=== PATIENT | female | born 1960 | race Caucasian/White ===

== ENCOUNTER 2023-01-01 12:38 | Outpatient (CLI) | payer OTHER, SELFPAY ==
--- NOTE | 2023-01-01 13:00 | CRLHL7_ITS ---
For Patients: As a result of the Cures Act, medical imaging exams and procedure reports are released immediately into your electronic medical record. You may view this report before your referring provider. If you have questions, please contact your health care provider. BILATERAL SCREENING MAMMOGRAM WITH COMPUTER-AIDED DETECTION AND TOMOSYNTHESIS TECHNIQUE: CC and MLO views were obtained. These mammographic images have been obtained using full-field digital technique. These mammographic images were interpreted with the benefit of computer-aided detection. Breast Tomosynthesis was used in this interpretation. COMPARISON FILM: 03/31/18, 03/25/17, 03/21/16. FINDINGS: There are scattered areas of fibroglandular density IMPRESSION: There is no radiographic evidence for malignancy. ASSESSMENT: BI-RADS Category 1: Negative RECOMMENDATION: Routine screening mammogram in 1 year. A lay language report of this examination will be provided to the patient. Karlos Kaur M.D. Diagnostic Radiologist [email or web address] GIANA/delfin / be/Dictated by: Karlos Kaur MD @ 01/07/2023 11:01:00 AM (Electronically Signed)
== END 2023-01-01 12:39 | disposition home or self-care (01) ==
LOC: MAMMO 12:38
PROVIDERS: Visit Provider Obstetrics & Gynecology
DX: Z12.31 Encounter for screening mammogram for malignant neoplasm of breast (principal)
CPT/HCPCS: 77063; 77067

== ENCOUNTER 2024-01-02 09:55 | Outpatient (CLI) | payer OTHER, SELFPAY ==
--- NOTE | 2024-01-02 10:15 | CRLHL7_ITS ---
For Patients: As a result of the Century Cures Act, medical imaging exams and procedure reports are released immediately into your electronic medical record. You may view this report before your referring provider. If you have questions, please contact your health care provider. BILATERAL SCREENING MAMMOGRAM WITH COMPUTER-AIDED DETECTION AND TOMOSYNTHESIS TECHNIQUE: CC and MLO views were obtained. These mammographic images have been obtained using full-field digital technique. These mammographic images were interpreted with the benefit of computer-aided detection. Breast Tomosynthesis was used in this interpretation. COMPARISON FILM: 01/01/23, 03/31/18, 03/25/17. FINDINGS: There are scattered areas of fibroglandular density. IMPRESSION: There is no radiographic evidence for malignancy. ASSESSMENT: BI-RADS Category 1: Negative RECOMMENDATION: Routine screening mammogram in 1 year. A lay language report of this examination will be provided to the patient. Karlos Kaur M.D. Diagnostic Radiologist [email or web address] SP/Dictated by: Karlos Kaur MD @ 01/08/2024 11:18:00 AM (Electronically Signed)
== END 2024-01-02 09:56 | disposition home or self-care (01) ==
LOC: MAMMO 09:59
PROVIDERS: PCP Family Medicine; Visit Provider Obstetrics & Gynecology
DX: Z12.31 Encounter for screening mammogram for malignant neoplasm of breast (principal)
CPT/HCPCS: 77063; 77067

== ENCOUNTER 2024-05-21 09:30 | Emergency (ER) | payer OTHER, SELFPAY ==
[2024-05-21 09:33] VITALS: BP 180/82; PULSE 84; RESP 18; TEMP 36.2; O2SAT 97; BMI 31.5
[2024-05-21 10:02] VITALS: PULSE 79; O2SAT 95
[2024-05-21 10:03] VITALS: BP 156/92; RESP 16
--- NOTE | 2024-05-21 10:06 | ED_ITS ---
HPI - General Adult General Chief complaint: Extremity Pain/Injury, Lower Stated complaint: fell at work, pain in rt knee Time Seen by Provider: 05/21/24 09:43 History of Present Illness HPI narrative: Patient presents to the emergency department complaining of right knee pain . Patient yesterday was attempting to fix a stool and when she was pushing on the stool it slipped out from under her and she hit her knee on the ground. Patient since has become swollen and painful. Patient denies head strike from fall. Patient has a small abrasion to right wrist. No other injuries at this time. 64-year-old woman presenting to the emergency department after a fall injury on her knees. In attempting to fix a stool it slipped out from under her grasp/pressure and she fell striking her right knee in particular on the ground. This occurred yesterday. Pain has continued. Pain with walking in particular attempting to bend the knee And has been swelling. No other significant injuries were sustained. Related Data Home Medications ?Medication ?Instructions ?Recorded ?Confirmed Diabetic Test Strips 01/30/23 01/30/23 albuterol 90 mcg/actuation aerosol mcg inhalation 01/30/23 01/30/23 inhaler aspirin 81 mg tablet,delayed mg PO DAILY 01/30/23 01/30/23 release atorvastatin 40 mg tablet mg PO .Bedtime 01/30/23 01/30/23 diabetic supplies, miscellan. 01/30/23 01/30/23 dicyclomine 10 mg capsule 10 mg PO .As Needed PRN 01/30/23 05/21/24 esomeprazole magnesium 40 mg 40 mg PO DAILY 01/30/23 05/21/24 capsule,delayed release ferrous sulfate 325 mg (65 mg mg PO DAILY 01/30/23 01/30/23 iron) tablet fexofenadine 180 mg tablet 180 mg PO DAILY 01/30/23 05/21/24 fluticasone 100 mcg-salmeterol 50 1 inhalation BID 01/30/23 01/30/23 mcg/dose blistr powdr for inhalation hydrochlorothiazide 25 mg tablet mg PO DAILY 01/30/23 01/30/23 hydroxychloroquine 200 mg tablet mg PO BID 01/30/23 01/30/23 ibuprofen 800 mg tablet mg PO DAILY 01/30/23 01/30/23 levothyroxine 137 mcg capsule 125 mcg PO QDAY 01/30/23 05/21/24 losartan 50 mg tablet mg PO DAILY 01/30/23 01/30/23 metformin 500 mg tablet,extended 1,000 mg PO 01/30/23 01/30/23 release 24 hr multivitamin (Multiple Vitamins 1 tab PO QAM 01/30/23 05/21/24 tablet) triamcinolone acetonide 0.1 % 1 applic topical BID 01/30/23 05/21/24 topical cream Allergies Allergy/AdvReac Type Severity Reaction Status Date / Time iodine AdvReac Intermediate Hives Verified 01/28/23 13:49 orange AdvReac Intermediate Verified 01/28/23 13:49 shellfish derived AdvReac Intermediate Verified 01/28/23 13:49 tomato AdvReac Intermediate Verified 01/28/23 13:49 methotrexate AdvReac Mild Hives Verified 01/28/23 13:49 Review of Systems Status of ROS: Reports: 6 or more systems reviewed and unremarkable except as noted in History and below Exam Narrative: Exam Narrative: Pleasant. Appears uncomfortable. Breathing easily. Examination of the right leg but notes significant discomfort here. There looks to be a mild effusion. She is quite tender over the patella in particular. I do not appreciate defect. Does not feel loose to varus or valgus stressors. Difficult to accomplish [place] kristen's and certainly not Jadiel's in her current degree of discomfort. Const: Vital Signs, click to edit/add: Vital Signs - 24 hr 05/21/24 09:33 05/21/24 10:02 05/21/24 10:03 Temperature 97.2 F L Pulse Rate 79 Pulse Rate [Right Pulse Oximeter] 84 Respiratory Rate 18 16 Blood Pressure 156/92 H Blood Pressure [Ri ght Upper Arm] 180/82 H Pulse Oximetry 97 95 Oxygen Delivery Me thod Room Air Documenting provider has reviewed patient's vital signs: yes Course Vital Signs Vital signs: Initial Vital Signs Temperature 97.2 F L 05/21/24 09:33 Temperature Source Temporal Artery Scan 05/21/24 09:33 Pulse Rate 84 05/21/24 09:33 Pulse Rhythm Regular 05/21/24 09:33 Pulse Strength 3+ Normal 05/21/24 09:33 Respiratory Rate 18 05/21/24 09:33 Blood Pressure 180/82 H 05/21/24 09:33 Blood Pressure Mean 114 H 05/21/24 09:33 Blood Pressure Position Sitting 05/21/24 09:33 Pulse Oximetry 97 05/21/24 09:33 Oxygen Delivery Method Room Air 05/21/24 09:33 Vital Signs Temperature 97.2 F L 05/21/24 09:33 Pulse Rate 84 05/21/24 09:33 Respiratory Rate 18 05/21/24 09:33 Blood Pressure 180/82 H 05/21/24 09:33 Pulse Oximetry 97 05/21/24 09:33 Oxygen Delivery Method Room Air 05/21/24 09:33 Temperature 97.2 F L 05/21/24 09:33 Pulse Rate 79 05/21/24 10:02 Respiratory Rate 16 05/21/24 10:03 Blood Pressure 156/92 H 05/21/24 10:03 Pulse Oximetry 95 05/21/24 10:02 Oxygen Delivery Method Room Air 05/21/24 09:33 Medical Decision Making MDM Narrative Medical decision making narrative: Primarily would suspect a contusion but certainly could have a patellar fr acture. Certainly could have irritated synovium with this impact with resulting effusion. Warrants x-ray and then I think some degree of immobility to allow to calm down. I did review of three view x-ray of the knee. Some small osteoarthritis. No patellar fracture appreciated. No fracture elsewhere. Radiology over-read as below Technique: Right knee 3 views Comparison: None Findings/impression: No acute fracture or dislocation. Moderate medial compartment joint space narrowing and minimal patellofemoral joint osteoarthritis. Trace knee joint effusion. Did review imaging with Ms. Suero. Recommending knee immobilizing and crutches. Icing. Juan wrap. Improved with immobilizer. See patient discharge plan for further discussion Discharge Plan Discharge Clinical Impression: Contusion of right patella, Effusion of knee, Acute knee pain Additional Instructions: Wear this knee immobilizer for comfort over this next week. Same for using crutches. I would ice your knee a few times daily over the next few days. Take this 6 in Juan wrap to help with placing ice packs. If you are not improved in a week, would follow up for re-evaluation. Can follow-up with your primary care provider or with orthopedics locally phone number [phone]. Would call 1st thing on Saturday to schedule that clinic appointment if not improved by that point. Can take ibuprofen or acetaminophen or naproxen for pain Prescriptions: No Action dicyclomine 10 mg capsule 10 mg PO .As Needed PRN metformin 500 mg tablet extended release 24 hr 1,000 mg PO fluticasone propion-salmeterol 100-50 mcg/dose blister with device 1 inhalation BID hydroxychloroquine 200 mg tablet PO BID hydrochlorothiazide 25 mg tablet PO DAILY esomeprazole magnesium 40 mg capsule,delayed release(DR/EC) 40 mg PO DAILY ferrous sulfate 325 mg (65 mg iron) tablet PO DAILY triamcinolone acetonide 0.1 % cream 1 applic topical BID aspirin 81 mg tablet,delayed release (DR/EC) PO DAILY fexofenadine 180 mg tablet 180 mg PO DAILY ibuprofen 800 mg tablet PO DAILY atorvastatin 40 mg tablet PO .Bedtime losartan 50 mg tablet PO DAILY multivitamin [Multiple Vitamins] Tablet 1 tab PO QAM levothyroxine 137 mcg capsule 125 mcg PO QDAY (DME) diabetic supplies, miscellan. Misc See Rx Instructions .ROUTE Rx Instructions: As directed (DME) Diabetic Test Strips Misc See Rx Instructions .ROUTE Rx Instructions: As directed albuterol 90 mcg/actuation aerosol inhalation Follow Up/Referrals: Yuliana Issa DO [Primary Care Provider] - Stand Alone Forms: [employer] Info Instructions
--- NOTE | 2024-05-21 10:09 | CRLHL7_ITS ---
For Patients: As a result of the Cures Act, medical imaging exams and procedure reports are released immediately into your electronic medical record. You may view this report before your referring provider. If you have questions, please contact your health care provider. Indication: Injury. Technique: Right knee 3 views Comparison: None Findings/impression: No acute fracture or dislocation. Moderate medial compartment joint space narrowing and minimal patellofemoral joint osteoarthritis. Trace knee joint effusion. Dictated by Era Burch MD @ 05/21/2024 10:37:40 AM (Electronically Signed)
== END 2024-05-21 11:34 | disposition home or self-care (01) ==
PROVIDERS: Emergency Provider Family Medicine; PCP Family Medicine
DX: S80.01XA Contusion of right knee, initial encounter (principal); W19.XXXA Unspecified fall, initial encounter
CPT/HCPCS: 73562; 99283; 99284

== ENCOUNTER 2025-02-03 11:56 | Outpatient (CLI) | payer OTHER, SELFPAY ==
[2025-02-09 10:52] LABS: Pap Test Digital Imaging Done
[2025-02-09 16:48] LABS: HPV Source Cervix
== END 2025-02-03 11:57 | disposition home or self-care (01) ==
PROVIDERS: PCP Family Medicine; Visit Provider Obstetrics & Gynecology
DX: Z12.4 Encounter for screening for malignant neoplasm of cervix (principal); Z11.51 Encounter for screening for human papillomavirus (HPV)
CPT/HCPCS: 87624; 87625; 88141; 88142; 88175

== ENCOUNTER 2025-03-23 18:32 | Outpatient (CLI) | payer OTHER, SELFPAY | END 2025-03-23 18:33 | disposition home or self-care (01) | LOC: NFLDREF 03-29 18:06 | PROVIDERS: PCP Family Medicine; Referring Provider Family Medicine; Visit Provider Physician Assistant | DX: R30.0 Dysuria (principal); N39.0 Urinary tract infection, site not specified; R35.0 Frequency of micturition | CPT/HCPCS: 87086 ==